=== PATIENT | female | born 2000 | race Hispanic/Latino ===

== ENCOUNTER 2019-01-21 16:07 | Day surgery (SDC) | payer SELFPAY ==
[2019-01-21 16:44] VITALS: TEMP 98.9; BMI 29.3
[2019-01-21 17:18] LABS: Amnisure Test No Membranes Rupture (No Rupture)
[2019-01-21 17:19] LABS: Amnisure Internal Control QC ACCEPTABLE (ACCEPTABLE)
[2019-01-21] MEDS ORDERED: hydrALAZINE 20 MG/ML VIAL SLOW IVP PRN (18:40)
--- NOTE | 2019-01-21 19:41 | PRG ---
DATE OF SERVICE: 01/21/2019 PRIMARY OB: Dr. Michael Martinez. CHIEF COMPLAINT: Nonreassuring BPP and leakage of fluid. HISTORY OF PRESENT ILLNESS: The patient is a 19-year-old G1, P0 female with an intrauterine at 34 weeks and 3 days, being sent from clinic today to Labor and Delivery after having a BPP of 6/8. Dr. Martinez also reported by phone that he had an UZAIR of 6 and that the patient was describing some leaking of fluid and wanted the patient here in Labor and Delivery to be evaluated. Upon arrival, the patient reports that she has had no other complications with this . She does report she has had a day history of a greenish white discharge, this she also describes as being watery. The patient denies any uterine contractions, any recent illness, fever, falls, cough, headache, chest pain, shortness of breath, nausea, vomiting, diarrhea, or constipation. She denies any new rashes, hip problems, knee problems, or muscle weakness. She denies any vaginal bleeding or urinary urgency or frequency. PAST MEDICAL HISTORY: Negative. PAST SURGICAL HISTORY: Negative. ALLERGIES: NO KNOWN DRUG ALLERGIES. MEDICATIONS: vitamins. SOCIAL HISTORY: Denies drug, alcohol, or tobacco use. OB LABS: Blood type O positive. Antibody screen is negative. VDRL is nonreactive in the first trimester. Hepatitis B surface antigen nonreactive in the first trimester. HIV nonreactive in the first trimester. GC and chlamydia were negative. She is rubella immune. One-hour Glucola was 133. REVIEW OF SYSTEMS: Per HPI. PHYSICAL EXAMINATION: VITAL SIGNS: Blood pressure 114/71, heart rate of 93, respiratory rate of 18. GENERAL: She appears to be in no acute distress. She is alert, oriented, cooperative, and pleasant to interact with. HEAD: Normocephalic and atraumatic. LUNGS: Clear to auscultation bilaterally. HEART: Has regular rate and rhythm. ABDOMEN: Nontender and gravid. EXTREMITIES: Nontender, nonedematous. heart tracing shows the fetus with a baseline in the 140s with moderate long-term variability and positive 15 x 15 accelerations. No contractions seen on the monitor. AmniSure test is negative. ASSESSMENT AND PLAN: The patient is a 19-year-old G1, P0 female with an intrauterine at 34 weeks and 3 days, who is presenting from clinic for leakage of fluid and a nonreactive BPP. The patient here has NST that is reactive giving her a total biophysical profile of 8/10. The patient has no evidence of rupture of membranes at this time. She has been given instructions tomorrow to repeat her ultrasound for the repeat biophysical profile that will be done here in the hospital in the outpatient setting. The orders have instructed the harness mender to contact us at [phone] with those results, so further management decisions can be made. If the patient has 8/8 BPP tomorrow, she can follow up with her primary OB as scheduled next week. Job ID: [id number]
--- NOTE | 2019-01-22 13:11 | ULT ---
EXAM: US Biophysical Profile PROVIDED CLINICAL HISTORY: None COMPARISON: None FINDINGS: tone: 2/2 breathin/2 movements: 2/2 Amniotic fluid: 2/2 Total: 12/10 heart rate: 1 53 bpm UZAIR: 6.4 IMPRESSION: Biophysical profile 12/10.
== END 2019-01-21 18:27 | disposition home or self-care (01) ==
LOC: L&D/OP 16:07
PROVIDERS: ATTEND Obstetrics & Gynecology
DX: O99.89 Other specified diseases and conditions complicating pregnancy, childbirth and the puerperium (principal); N89.8 Other specified noninflammatory disorders of vagina; O76 Abnormality in fetal heart rate and rhythm complicating labor and delivery; O36.8130 Decreased fetal movements, third trimester, not applicable or unspecified; Z3A.34 34 weeks gestation of pregnancy
CPT/HCPCS: 76819; 84112

== ENCOUNTER 2019-02-01 10:14 | Inpatient (IN) | payer MEDICAID, SELFPAY ==
[2019-02-01] MEDS ORDERED: Promethazine HCl 25 MG/ML VIAL IM PRN (11:19)
[2019-02-01] MEDS ORDERED: Docusate 100 MG CAP PO PRN (11:19)
[2019-02-01] MEDS ORDERED: Ondansetron PF 4 MG/2 ML Vial IVP PRN (11:19)
[2019-02-01] MEDS ORDERED: hydrALAZINE 20 MG/ML VIAL SLOW IVP PRN (11:19)
[2019-02-01 11:27] VITALS: BMI 31.4
[2019-02-01] MEDS: Betamet Acet/Betamet Na Ph 30 MG/5 ML VIAL IM SCH (12:01)
[2019-02-01] MEDS: Lactated Ringer's 1,000 ML IV SCH (12:03)
[2019-02-01 12:20] LABS: Hemoglobin 12.8 g/dL (12.0-16.0); Mean Corpuscular HGB CONC 35.1 g/dL (32.0-36.0); Mean Corpuscular Hemoglobin 32.6 pg (27.0-31.0); Mean Platelet Volume 7.8 fL (7.4-10.4); Platelet Count 254 thou/uL (130-400); RBC Distribution Width 11.8 % (11.5-14.5); Red Blood Cell (RBC) Count 3.93 mill/uL (4.20-5.40); White Blood Cell (WBC) Count 9.1 thou/uL (4.8-10.8)
[2019-02-01 12:59] LABS: Syphilis Antibody Nonreactive (Nonreactive); Syphilis Antibody Index 0.03 S/CO (<1.00 Non-Reactive)
[2019-02-01 13:01] LABS: HBSAg Index 0.14 S/CO (0-0.99); Hep B Surf Ag Non-Reactive S/CO (NonReactive)
--- NOTE | 2019-02-01 16:08 | ULT ---
EXAM: US Biophysical Profile PROVIDED CLINICAL HISTORY: Oligohydramnios, borderline IUGR, 4 out of 8 biophysical profile score. COMPARISON: 01/22/2019 FINDINGS: Again, there is a single intrauterine gestation in cephalic presentation. Cardiac Doppler demonstrate s heart tones with a heart rate of 140 bpm. Cervical length grossly measures 3.3 cm based on transabdominal imaging. Subjectively, there is a decrease in amniotic fluid. The amniotic fl uid index is also decreased measuring 5 cm. Biophysical profile: tone: 2/2 breathin/2 movement: 2/2 Amniotic fluid volume: 2/2 IMPRESSION: 1. Oligohydramnios with amniotic fluid index measuring 5 cm. The amniotic fluid index on the prior st udy measured 6.4 cm. 2. Total biophysical profile score is 8 out of 8.
--- NOTE | 2019-02-01 18:17 | PDOC.LDHP ---
Labor and Delivery H&P HPI: 19 Y/O at 36 and 0/7 weeks with Oligohydramnios and borderline IUGR presents to L&D for further monitoring and in-patient corticosteroids (BMZ x 2 doses). Bpp in office only 08/10, but patient did not eat breakfast. We will order a repeat BPP for 300pm. Placenta is heavily calcified. Induction od labor planned 36-37 weeks per ACOG. Current gestational age (weeks): 36 Due date: 03/01/19 Grav: 1 Para: 0 Current complications: IUGR, oligohydramnios Abnormal US findings: Yes Current medications: pre-dante vitamins Previous surgical history: none Allergies/Adverse Reactions: Allergies Allergy/AdvReac Type Severity Reaction Status Date / Time No Known Allergies Allergy Unverified 01/21/19 16:39 Social history: none - Physical Exam Vital signs reviewed and normal: yes General: NAD, resting Heart: RRR Lungs: CTAB Abdomen: gravid FHT: category 1 - Vaginal Exam cm dilated: 1 (60-70% EFFACED) Station: -3 - Assessment 1. OLIGOHYDRAMNIOS 2. CALCIFIED,AGED PLACENTA 3. BORDERLINE IUGR (12%) 4. NO SERIAL GROWTH OF FETUS IN 2WEEKS. - Plan Plan: admit to L&D, observation in L&D -: 1. ADMIT TO L&D 2. START STEROID COURSE - BMZ X 2 DOSES 3. REPEAT BPP THIS AFTERNOON 4. CONTINUOUS MONITORING 5. INDUCTION OF LABOR LIKELY FOR TOMORROW EVENING
[2019-02-01] MEDS: Calcium Carbonate 500 MG ChewTAB PO PRN (19:25)
[2019-02-02] MEDS: Lactated Ringer's 1,000 ML IV SCH ×3 (03:48→23:17)
[2019-02-02] MEDS: Famotidine 20 MG TAB PO SCH (09:02)
[2019-02-02] MEDS: Prenatal Vitamin 1 TAB PO SCH (09:02)
[2019-02-02] MEDS: Betamet Acet/Betamet Na Ph 30 MG/5 ML VIAL IM SCH (11:35)
--- NOTE | 2019-02-02 20:34 | PDOC.EVN ---
Event Note - Event Note Event Note: 19 yo at 36 and 1/7 wks today, with Oligohydramnios and borderline IUGR presents for BMZ course and indicated medical induction. Patient has reactive, reassuring NST today. BMZ course now in progress (approx 36 hrs in). REVIEW OF SYSTEMS: Gen: no fever, chills, or sweats Neuro: no numbness/tingling, no weakness, denies headache Eyes: no visual changes ENT: no hearing changes, no sore throat, no runny nose Resp: no cough, no SOB, no wheeze Card: denies chest pain, no palpitations GI: no N/V/D, no abdominal pain : no dysuria, no hematuria MSK: no issues noted Heme: no easy bruising/bleeding Skin: no rash, no erythema PHYSICAL EXAMINATION: General: NAD, alert and oriented x3 HEENT: PERRLA, EOMI, normal sclera, oropharynx without erythema or exudate Neck: Supple. Full ROM. Heart/Cardiovascular System: RRR, Cap refill < 3 seconds, no rub, no murmur Lungs/Respiratory System: clear to auscultation bilaterally. No increased work of breathing. Room air. Abdomen/Gastro-Intestinal System: no abdominal tenderness, normal bowel sounds, Gravid Pelvic Exam: Deferred Extremities: Warm extremities. No cyanosis or edema. Neuro: No gross deficits appreciated. CN 2-12 grossly intact Psychiatry: Awake, Alert and cooperative with exam Skin/ Integumentary: No lesions, rashes, or ulcers Musculoskeletal: Full ROM A/P: Assessment: 1. 19 y/o at 36 and 1/7 wks 2. Oligohydramnios 3. Borderline IUGR with no interval growth of fetus over 2 weeks. 4. BMZ x2 doses now given 4. Vertex on last Ultrasound 5. Desired and Induction Planned, although fetus may not tolerate labor 7. Latest NST was read and is reactive, without notable decelerations,and overall, reassuring for normal acid/base status of the fetus. PLAN: 1. NST twice daily 2. Will attempt to complete BMZ 48 hour window, and proceed with induction of labor using cytotec in hopes of obtaining a 36 week delivery vaginally. Exact timing of induction to be determined.
[2019-02-02] MEDS: Calcium Carbonate 500 MG ChewTAB PO PRN (21:07)
[2019-02-03] MEDS: Lactated Ringer's 1,000 ML IV SCH ×2 (05:58→09:48)
[2019-02-03] MEDS: Prenatal Vitamin 1 TAB PO SCH (08:00)
[2019-02-03] MEDS: Famotidine 20 MG TAB PO SCH (08:00)
[2019-02-03] MEDS ORDERED: FLU VACC QS2019-20(6MOS UP)/PF 60 MCG/0.5 ML SYRINGE IM ONE (09:00)
[2019-02-03] MEDS ORDERED: HYDROcodone/Acetaminophen 5/325 mg Tablet PO PRN ×2 (09:07)
[2019-02-03] MEDS ORDERED: Ibuprofen 800 MG TAB PO PRN (09:07)
[2019-02-03] MEDS ORDERED: Carboprost 250 MCG/ML AMP IM PRN (09:07)
[2019-02-03] MEDS ORDERED: Acetaminophen 500 MG TAB PO PRN (09:07)
[2019-02-03] MEDS ORDERED: Zolpidem Tartrate 5 MG TAB PO PRN (09:07)
[2019-02-03] MEDS ORDERED: Diphenoxylate HCl/Atropine Tablet PO PRN ×2 (09:07)
[2019-02-03] MEDS ORDERED: Promethazine HCl 25 MG/ML VIAL IM PRN (09:07)
[2019-02-03] MEDS ORDERED: Misoprostol 200 MCG TAB PR PRN (09:07)
[2019-02-03] MEDS ORDERED: Lidocaine 1% (PF) 30 ML VIAL SC PRN (09:07)
[2019-02-03] MEDS ORDERED: Methylergonovine 0.2 MG/ML VIAL IM PRN (09:07)
[2019-02-03] MEDS ORDERED: hydrALAZINE 20 MG/ML VIAL SLOW IVP PRN (09:07)
[2019-02-03] MEDS ORDERED: Butorphanol Tartrate 1 MG/ML VIAL SLOW IVP PRN (09:07)
[2019-02-03] MEDS ORDERED: NS / Oxytocin 40 units/1000ml 1,000 ML IV PRN (09:07)
[2019-02-03 09:53] LABS: Hemoglobin 12.4 g/dL (12.0-16.0); Mean Corpuscular HGB CONC 34.4 g/dL (32.0-36.0); Mean Corpuscular Hemoglobin 32.3 pg (27.0-31.0); Mean Corpuscular Volume 93.8 fL (78.0-98.0); Mean Platelet Volume 7.7 fL (7.4-10.4); Platelet Count 244 thou/uL (130-400); RBC Distribution Width 11.8 % (11.5-14.5); Red Blood Cell (RBC) Count 3.85 mill/uL (4.20-5.40); White Blood Cell (WBC) Count 10.9 thou/uL (4.8-10.8)
[2019-02-03 10:49] LABS: HBSAg Index 0.16 S/CO (0-0.99); Hep B Surf Ag Non-Reactive S/CO (NonReactive); Syphilis Antibody Nonreactive (Nonreactive); Syphilis Antibody Index 0.03 S/CO (<1.00 Non-Reactive)
[2019-02-03] MEDS: Misoprostol 100 MCG TAB VAG SCH ×4 (11:28→21:01)
[2019-02-04] MEDS: Lactated Ringer's 1,000 ML IV SCH ×4 (00:53→17:06)
[2019-02-04] MEDS: NS w/ Oxytocin 10 units 500 ML IV SCH ×2 (04:24→17:06)
[2019-02-04] MEDS: Ondansetron PF 4 MG/2 ML Vial IVP PRN (05:41)
[2019-02-04] MEDS: Misoprostol 100 MCG TAB VAG SCH ×4 (09:04→18:40)
[2019-02-04] MEDS: Famotidine 20 MG TAB PO SCH (09:05)
--- NOTE | 2019-02-05 01:02 | PDOC.EVN ---
Event Note - Event Note Event Note: 19 yo at 36 and 2/7 wks today, with Oligohydramnios and borderline IUGR who presented for BMZ course and indicated medical induction. Patient has reactive, reassuring NST today. REVIEW OF SYSTEMS: Gen: no fever, chills, or sweats Neuro: no numbness/tingling, no weakness, denies headache Eyes: no visual changes ENT: no hearing changes, no sore throat, no runny nose Resp: no cough, no SOB, no wheeze Card: denies chest pain, no palpitations GI: no N/V/D, no abdominal pain : no dysuria, no hematuria MSK: no issues noted Heme: no easy bruising/bleeding Skin: no rash, no erythema PHYSICAL EXAMINATION: General: NAD, alert and oriented x3 HEENT: PERRLA, EOMI, normal sclera, oropharynx without erythema or exudate Neck: Supple. Full ROM. Heart/Cardiovascular System: RRR, Cap refill < 3 seconds, no rub, no murmur Lungs/Respiratory System: clear to auscultation bilaterally. No increased work of breathing. Room air. Abdomen/Gastro-Intestinal System: no abdominal tenderness, normal bowel sounds, Gravid Pelvic Exam: Deferred Extremities: Warm extremities. No cyanosis or edema. Neuro: No gross deficits appreciated. CN 2-12 grossly intact Psychiatry: Awake, Alert and cooperative with exam Skin/ Integumentary: No lesions, rashes, or ulcers Musculoskeletal: Full ROM A/P: Assessment: 1. 19 y/o at 36 and 2/7 wks 2. Oligohydramnios 3. Borderline IUGR with no interval growth of fetus over 2 weeks. 4. BMZ x2 course completed 4. Vertex presentation 5. Desired PLAN: 1. We have now begun medical induction of labor using cytotec in hopes of obtaining a 36 week delivery vaginally. Will use Cytotec to start induction.
--- NOTE | 2019-02-05 01:05 | PDOC.EVN ---
Event Note - Event Note Event Note: 19 yo at 36 and 3/7 wks today, with Oligohydramnios and borderline IUGR who presented for BMZ course and indicated medical induction. REVIEW OF SYSTEMS: Gen: no fever, chills, or sweats Neuro: no numbness/tingling, no weakness, denies headache Eyes: no visual changes ENT: no hearing changes, no sore throat, no runny nose Resp: no cough, no SOB, no wheeze Card: denies chest pain, no palpitations GI: no N/V/D, no abdominal pain : no dysuria, no hematuria MSK: no issues noted Heme: no easy bruising/bleeding Skin: no rash, no erythema PHYSICAL EXAMINATION: General: NAD, alert and oriented x3 HEENT: PERRLA, EOMI, normal sclera, oropharynx without erythema or exudate Neck: Supple. Full ROM. Heart/Cardiovascular System: RRR, Cap refill < 3 seconds, no rub, no murmur Lungs/Respiratory System: clear to auscultation bilaterally. No increased work of breathing. Room air. Abdomen/Gastro-Intestinal System: no abdominal tenderness, normal bowel sounds, Gravid Pelvic Exam: Deferred Extremities: Warm extremities. No cyanosis or edema. Neuro: No gross deficits appreciated. CN 2-12 grossly intact Psychiatry: Awake, Alert and cooperative with exam Skin/ Integumentary: No lesions, rashes, or ulcers Musculoskeletal: Full ROM A/P: Assessment: 1. 19 y/o at 36 and 3/7 wks 2. Oligohydramnios 3. Borderline IUGR with no interval growth of fetus over 2 weeks. 4. BMZ x2 course completed 4. Medically indicated late medical Induction of labor underway for the above indications. Membranes intact, and patient now on Pitocin. PLAN: 1. Continue induction of labor 2. AROM when indicated and possible 3. Epidural anesthesia options discussed in detail. 4. Anticipate .
--- NOTE | 2019-02-05 01:07 | PDOC.EVN ---
Event Note - Event Note Event Note: 19 yo at 36 and 4/7 wks today, with Oligohydramnios and borderline IUGR who presented for BMZ course and followed by indicated medical induction. REVIEW OF SYSTEMS: Gen: no fever, chills, or sweats Neuro: no numbness/tingling, no weakness, denies headache Eyes: no visual changes ENT: no hearing changes, no sore throat, no runny nose Resp: no cough, no SOB, no wheeze Card: denies chest pain, no palpitations GI: no N/V/D, no abdominal pain : no dysuria, no hematuria MSK: no issues noted Heme: no easy bruising/bleeding Skin: no rash, no erythema PHYSICAL EXAMINATION: General: NAD, alert and oriented x3 HEENT: PERRLA, EOMI, normal sclera, oropharynx without erythema or exudate Neck: Supple. Full ROM. Heart/Cardiovascular System: RRR, Cap refill < 3 seconds, no rub, no murmur Lungs/Respiratory System: clear to auscultation bilaterally. No increased work of breathing. Room air. Abdomen/Gastro-Intestinal System: no abdominal tenderness, normal bowel sounds, Gravid Pelvic Exam: Deferred Extremities: Warm extremities. No cyanosis or edema. Neuro: No gross deficits appreciated. CN 2-12 grossly intact Psychiatry: Awake, Alert and cooperative with exam Skin/ Integumentary: No lesions, rashes, or ulcers Musculoskeletal: Full ROM A/P: Assessment: 1. 19 y/o at 36 and 4/7 wks 2. Oligohydramnios 3. Borderline IUGR with no interval growth of fetus over 2 weeks. 4. BMZ x2 course completed 4. Vertex presentation 5. Desired 6. AROM just completed with small amount of clear fluid. IUPC placed. PLAN: 1. Continue titrating pitocin based on MVUs 2. Epidural currently declined. 3. Pt. requesting Stadol.
--- NOTE | 2019-02-05 01:09 | PDOC.LDPN ---
Labor & Delivery Progress Note - Subjective Subjective: comfortable - Objective Vital signs reviewed and normal: yes General: NAD, resting Uterine fundus: non tender (Ancef 2g given for temperature elevation of 100 degrees F.) Dilation: 9 Effacement: 100% Station: 1+ FHT: category 1 AROM: clear fluid Plan: continue plan of care, pitocin for augmentation
[2019-02-05] MEDS ORDERED: Fentanyl 4 mcg/Bup 0.1% Cadd 100 ML ONE ×2 (01:28→08:49)
[2019-02-05] MEDS ORDERED: Acetaminophen 325 MG TAB PO PRN (02:12)
[2019-02-05] MEDS ORDERED: ePHEDrine/0.9% NaCl/PF SYRINGE 50 mg/10 ml SLOW IVP PRN (02:12)
[2019-02-05] MEDS ORDERED: Ondansetron PF 4 MG/2 ML Vial IVP PRN ×2 (02:12→13:12)
[2019-02-05] MEDS ORDERED: diphenhydrAMINE 50 MG/ML VIAL IVP PRN (02:12)
[2019-02-05] MEDS ORDERED: Lactated Ringer's 500 ML IV PRN (02:12)
[2019-02-05] MEDS ORDERED: Promethazine HCl 25 MG/ML VIAL IM PRN ×2 (02:12→13:12)
[2019-02-05] MEDS ORDERED: Naloxone HCl 0.4 mg/ml Vial IVP PRN ×2 (02:12)
[2019-02-05] MEDS ORDERED: Communication Order-Pharmacy FS SCH (02:15)
[2019-02-05] MEDS ORDERED: Fentanyl 4 mcg/Bupivacaine 0.1% Cassette 100 ML EPIDURAL SCH (02:15)
[2019-02-05] MEDS: Misoprostol 100 MCG TAB VAG SCH ×4 (04:25→13:51)
[2019-02-05] MEDS: NS w/ Oxytocin 10 units 500 ML IV SCH ×3 (05:13→13:52)
[2019-02-05] MEDS: Ondansetron PF 4 MG/2 ML Vial IVP PRN (05:52)
[2019-02-05] MEDS ORDERED: Misoprostol 200 MCG TAB ONE (10:56)
[2019-02-05] MEDS ORDERED: Bupivacaine/Epinephrine 0.25% 30 ML VIAL ONE (11:11)
[2019-02-05] MEDS ORDERED: hydrALAZINE 20 MG/ML VIAL SLOW IVP PRN (13:12)
[2019-02-05] MEDS ORDERED: HYDROcodone/Acetaminophen 5/325 mg Tablet PO PRN ×2 (13:12)
[2019-02-05] MEDS ORDERED: Milk Of Magnesia 30 ML UDCUP PO PRN (13:12)
[2019-02-05] MEDS ORDERED: Adacel (T-DAP) 0.5 ML SYRINGE IM ONE (13:12)
[2019-02-05] MEDS ORDERED: Measles/Mumps/Rubella 10 MCG/0.5 ML VIAL SC ONE (13:12)
[2019-02-05] MEDS ORDERED: Lanolin Ointment 7 GM TUBE TOP PRN (13:12)
[2019-02-05] MEDS ORDERED: Misoprostol 200 MCG TAB VAG PRN (13:12)
[2019-02-05] MEDS ORDERED: Zolpidem Tartrate 5 MG TAB PO PRN (13:12)
[2019-02-05] MEDS ORDERED: NS / Oxytocin 40 units/1000ml 1,000 ML IV SCH (13:12)
[2019-02-05] MEDS ORDERED: Bisacodyl 10 MG SUPP PR PRN (13:12)
[2019-02-05] MEDS ORDERED: diphenhydrAMINE 25 MG CAP PO PRN (13:12)
[2019-02-05] MEDS ORDERED: Varicella virus, LIVE 0.5 ML VIAL SC ONE (13:12)
[2019-02-05] MEDS ORDERED: Preparation H Ointment 28 GM TUBE PR PRN (13:12)
[2019-02-05] MEDS ORDERED: Methylergonovine 0.2 MG/ML VIAL IM PRN (13:12)
[2019-02-05] MEDS: Ferrous Sulfate 325 MG TAB PO SCH ×2 (13:48→15:52)
[2019-02-05] MEDS: Docusate Calcium (SURFAK) 240 MG CAP PO SCH ×2 (13:48→21:48)
[2019-02-05] MEDS: Ibuprofen 800 MG TAB PO SCH ×3 (13:49→21:48)
[2019-02-05] MEDS: Famotidine 20 MG TAB PO SCH (13:50)
[2019-02-05] MEDS: Lactated Ringer's 1,000 ML IV SCH (13:50)
[2019-02-06] MEDS: Ibuprofen 800 MG TAB PO SCH ×3 (05:57→21:29)
[2019-02-06 06:19] LABS: Hemoglobin 11.7 g/dL (12.0-16.0); Mean Corpuscular HGB CONC 34.3 g/dL (32.0-36.0); Mean Corpuscular Hemoglobin 33.1 pg (27.0-31.0); Mean Corpuscular Volume 96.5 fL (78.0-98.0); Mean Platelet Volume 7.7 fL (7.4-10.4); Platelet Count 226 thou/uL (130-400); Red Blood Cell (RBC) Count 3.54 mill/uL (4.20-5.40); White Blood Cell (WBC) Count 14.9 thou/uL (4.8-10.8)
[2019-02-06] MEDS: Ferrous Sulfate 325 MG TAB PO SCH ×2 (09:44→18:02)
[2019-02-06] MEDS: Docusate Calcium (SURFAK) 240 MG CAP PO SCH ×2 (09:44→21:29)
--- NOTE | 2019-02-06 11:56 | PDOC.PP ---
Post Progress Note Post Day #: 1 PO intake tolerated: yes Flatus: yes Ambulation: yes Vital Signs (12 hours) Temp Pulse Resp BP Pulse Ox 02/06/19 08:00 98.1 F 73 16 110/70 96 02/06/19 04:18 98.1 F 73 16 121/70 02/06/19 00:00 98.2 F 78 16 118/69 Weight Weight 183 lb - Physical Examination Cardiovascular: no m/r/g, RRR Respiratory: clear to auscultation bilaterally, non-labored breathing Abdominal: + bowel sounds, lochia, no distention Extremities: negative homans (B) Neurological: no gross focal deficits Psychiatric: A&Ox3, normal affect Result Diagrams: 02/06/19 06:03 Additional Labs: Post Labs Blood Type O POSITIVE 02/01/19 12:31 Hep Bs Antigen Non-Reactive S/CO (NonReactive) 02/03/19 09:39 - Assessment/Plan DC Home planned for tomorrow
--- NOTE | 2019-02-06 13:04 | DN ---
DATE OF PROCEDURE: 02/05/2019 TIME: 11:08 [employer] Day[employer] Savings Time. PREOPERATIVE DIAGNOSIS: Intrauterine at 36 weeks and 4 days with a diagnosis of oligohydramnios and borderline intrauterine growth restriction with no serial growth over 2 weeks and heavily calcified placenta. POSTOPERATIVE DIAGNOSIS: Intrauterine at 36 weeks and 4 days with a diagnosis of oligohydramnios and borderline intrauterine growth restriction with no serial growth over 2 weeks and heavily calcified placenta. PROCEDURE PERFORMED: Spontaneous vaginal delivery over a small laceration of the hymenal ring. FINDINGS: Viable female weighing 2418 g or 5 pounds 5 ounces, Apgars 8 and 9. QUANTITATIVE BLOOD LOSS: 27. COMPLICATIONS: None. PROCEDURE IN DETAIL: The patient presented to [facility] where she was admitted to the labor and delivery service. The patient underwent a normal and uneventful labor with normal cervical dilatation until she was found to be completely dilated. She was then allowed to push and was able to bring the baby down and delivered the baby in a vertex presentation without difficulties. Once the head delivered in occiput anterior position, the shoulders followed spontaneously along with the rest of the baby's body. Once out the baby's mouth and nose were bulb suctioned. The cord was clamped and cut and baby was handed to waiting attendants. Cord blood was collected. Gentle fundal massage was performed and the placenta delivered intact without problems. Hemostasis was assured. Quantitative blood loss was calculated. Inspection of the cervix, vaginal vault, and perineum did not reveal any lacerations needing suturing. Once again, hemostasis was within normal limits and the patient was allowed to recover in the labor and delivery room. Baby went to nursery. Job ID: [id number]
--- NOTE | 2019-02-07 03:14 | PDOC.PP ---
Post Progress Note Post Day #: 2 PO intake tolerated: yes Flatus: yes Ambulation: yes Vital Signs (12 hours) Temp Pulse Resp BP Pulse Ox 02/06/19 19:56 97.8 F 92 16 116/55 L 98 02/06/19 16:35 98.8 F 80 18 115/64 Weight Weight 183 lb - Physical Examination General: NAD Cardiovascular: no m/r/g, RRR Respiratory: clear to auscultation bilaterally, non-labored breathing Abdominal: + bowel sounds, lochia, no distention Extremities: negative homans (B) Neurological: no gross focal deficits Psychiatric: A&Ox3, normal affect Result Diagrams: 02/06/19 06:03 Additional Labs: Post Labs Blood Type O POSITIVE 02/01/19 12:31 Hep Bs Antigen Non-Reactive S/CO (NonReactive) 02/03/19 09:39
[2019-02-07] MEDS: Ibuprofen 800 MG TAB PO SCH ×2 (05:07→14:49)
[2019-02-07 08:53] VITALS: BP 115/58; TEMP 98.3
[2019-02-07] MEDS: Ferrous Sulfate 325 MG TAB PO SCH (14:47)
[2019-02-07] MEDS: Docusate Calcium (SURFAK) 240 MG CAP PO SCH (14:48)
[2019-02-07] MEDS ORDERED: FLU VACC QS2019-20(6MOS UP)/PF 60 MCG/0.5 ML SYRINGE IM ONE (18:00)
== END 2019-02-07 16:54 | disposition home or self-care (01) | DRG 806 ==
LOC: L&D 10:14 → 3SW 23:40 → L&D 02-03 10:23 → 3SW 02-05 13:27
PROVIDERS: ADMIT Obstetrics & Gynecology; ATTEND Obstetrics & Gynecology
PROC: 10907ZC Drainage of Amniotic Fluid, Therapeutic from Products of Conception, Via Natural or Artificial Opening (ICD-10-PCS; principal; 2019-02-05)
PROC: 10E0XZZ Delivery of Products of Conception, External Approach (ICD-10-PCS; 2019-02-05)
PROC: 3E033VJ Introduction of Other Hormone into Peripheral Vein, Percutaneous Approach (ICD-10-PCS; 2019-02-05)
PROC: 3E0P7VZ Introduction of Hormone into Female Reproductive, Via Natural or Artificial Opening (ICD-10-PCS; 2019-02-05)
PROC: 3E02340 Introduction of Influenza Vaccine into Muscle, Percutaneous Approach (ICD-10-PCS; 2019-02-05)
DX: O36.5930 Maternal care for other known or suspected poor fetal growth, third trimester, not applicable or unspecified (principal); O41.03X0 Oligohydramnios, third trimester, not applicable or unspecified; Z37.0 Single live birth; O43.893 Other placental disorders, third trimester; O70.0 First degree perineal laceration during delivery; Z3A.36 36 weeks gestation of pregnancy; Z23 Encounter for immunization
CPT/HCPCS: 36415; 59025; 76819; 85027; 86780; 86850; 86900; 86901; 87340; 88307; 90471; 90685; 90686; 99285; G0008; J0595; J0702; J2405; J2590

== ENCOUNTER 2020-12-15 16:05 | Emergency (ER) | payer SELFPAY | END 2020-12-15 18:58 | disposition home or self-care (01) | LOC: ERS 16:05 | DX: O03.4 Incomplete spontaneous abortion without complication (principal) | CPT/HCPCS: 36415; 84702; 99284 ==

== ENCOUNTER 2025-02-14 11:34 | Observation (INO) | payer SELFPAY ==
[2025-02-14 12:23] LABS: #Basophils Less than 0.03 10x3/uL (0.0-0.2); #Eosinophils 0.05 10x3/uL (0.0-0.7); #Monocytes 0.46 10x3/uL (0.11-0.59); #Neutrophils 3.82 10x3/uL (1.40-6.50); %Basophils 0.2 % (0.0-1.0); %Eosinophils 0.8 % (0.0-10.0); %Lymphocytes 33.5 % (21.0-51.0); %Monocytes 7.0 % (0.0-10.0); %Neutrophils 58.3 % (42.0-75.0); Hematocrit 38.9 % (36.0-47.0); Hemoglobin 13.2 g/dL (12.0-16.0); Mean Corpuscular Hemoglobin 32.0 pg (27.0-31.0); Mean Corpuscular Volume 94.2 fL (78.0-98.0); Platelet Count 229 10x3/uL (130-400); Red Blood Cell (RBC) Count 4.13 mill/uL (4.20-5.40); White Blood Cell (WBC) Count 6.54 10x3/uL (4.8-10.8)
[2025-02-14 12:52] LABS: ALT (SGPT) 13 U/L (Less than 34); AST (SGOT) 31 U/L (11-34); Albumin 4.0 g/dL (3.1-4.5); Alkaline Phosphatase 90 U/L (40-110); Anion Gap 10 mmol/L (10-20); BUN (Urea Nitrogen) 7 mg/dL (7.0-18.7); Bilirubin, Total 0.6 mg/dL (0.3-1.2); Calc. Creatinine Clearance 0 mL/min (70-130); Calcium 9.0 mg/dL (7.8-10.44); Carbon Dioxide 25 mmol/L (22-29); Chloride 108 mmol/L (98-107); Globulin 2.6 g/dL (2.4-3.5); Glucose 99 mg/dL (70-105); Potassium 3.8 mmol/L (3.5-5.1); Sodium 139 mmol/L (136-145)
[2025-02-14] MEDS ORDERED: Dextrose 50% Abboject 50 ML SYRINGE SLOW IVP PRN (13:30)
[2025-02-14] MEDS ORDERED: Glucagon 1 MG/ML KIT IM PRN (13:30)
[2025-02-14] MEDS ORDERED: Ondansetron PF 4 MG/2 ML Vial IVP PRN (13:30)
[2025-02-14] MEDS ORDERED: Methocarbamol 500 MG TAB PO PRN (13:30)
[2025-02-14 15:37] LABS: BHCG - Serum Negative (NEGATIVE); Pregs Control Background? CLEAR/WHITE (CLR/WHITE); Pregs Control Bar Appear? YES (CONTROL BAR)
[2025-02-14] MEDS ORDERED: Lidocaine 1% PF 5 ML VIAL ONE (16:32)
[2025-02-14] MEDS ORDERED: Rocuronium Bromide 10 MG/ML (10ML VIAL) ONE (16:32)
[2025-02-14] MEDS ORDERED: fentaNYL PF 100 MCG/2 ML SYRINGE ONE (16:32)
[2025-02-14] MEDS ORDERED: PROPOFOL 20 ML ONE (16:32)
[2025-02-14] MEDS ORDERED: Ondansetron PF 4 MG/2 ML Vial ONE (17:27)
[2025-02-14] MEDS ORDERED: Ketorolac Tromethamine 30 MG (1 mL) VIAL ONE (17:27)
[2025-02-14] MEDS ORDERED: SUGAMMADEX SODIUM 200 MG/2 ML VIAL ONE (18:01)
[2025-02-14] MEDS ORDERED: Bupivacaine 0.25% HCL 30 ML VIAL ONE (18:23)
[2025-02-14] MEDS ORDERED: HYDROmorphone 2 MG/ML VIAL ONE (18:32)
[2025-02-14 21:29] VITALS: BMI 33.3
[2025-02-14] MEDS: Senokot S 8.6-50 MG TAB PO SCH (21:38)
[2025-02-15] MEDS: Acetaminophen 325 MG TAB PO PRN (05:44)
[2025-02-15 05:45] LABS: #Basophils Less than 0.03 10x3/uL (0.0-0.2); #Eosinophils Less than 0.03 10x3/uL (0.0-0.7); #Monocytes 0.29 10x3/uL (0.11-0.59); #Neutrophils 5.95 10x3/uL (1.40-6.50); %Basophils 0.0 % (0.0-1.0); %Eosinophils 0.0 % (0.0-10.0); %Lymphocytes 9.7 % (21.0-51.0); %Monocytes 4.2 % (0.0-10.0); %Neutrophils 85.7 % (42.0-75.0); Hematocrit 38.5 % (36.0-47.0); Hemoglobin 12.9 g/dL (12.0-16.0); Mean Corpuscular Hemoglobin 31.8 pg (27.0-31.0); Mean Corpuscular Volume 94.8 fL (78.0-98.0); Platelet Count 235 10x3/uL (130-400); Red Blood Cell (RBC) Count 4.06 mill/uL (4.20-5.40); White Blood Cell (WBC) Count 6.94 10x3/uL (4.8-10.8)
[2025-02-15 05:49] LABS: ALT (SGPT) 34 U/L (Less than 34); AST (SGOT) 32 U/L (11-34); Albumin 3.8 g/dL (3.1-4.5); Alkaline Phosphatase 84 U/L (40-110); Anion Gap 10 mmol/L (10-20); BUN (Urea Nitrogen) 4 mg/dL (7.0-18.7); Bilirubin, Total 0.6 mg/dL (0.3-1.2); Calc. Creatinine Clearance 206 mL/min (70-130); Calcium 8.9 mg/dL (7.8-10.44); Carbon Dioxide 24 mmol/L (22-29); Chloride 107 mmol/L (98-107); Globulin 2.7 g/dL (2.4-3.5); Glucose 133 mg/dL (70-105); Potassium 4.1 mmol/L (3.5-5.1); Sodium 137 mmol/L (136-145)
[2025-02-15] MEDS: FLU (Fluarix Triv) 25-26 (6MOS UP)/PF 45 MCG/0.5 ML Syringe IM ONE (10:24)
[2025-02-15 10:33] VITALS: BP 108/72; TEMP 98.2
== END 2025-02-15 11:24 | disposition home or self-care (01) ==
LOC: ERS 11:34 → ERHOLD 13:37 → T4-B 20:46
PROVIDERS: ADMIT Surgery; ATTEND Surgery
PROC: 0FT44ZZ Resection of Gallbladder, Percutaneous Endoscopic Approach (ICD-10-PCS; principal; 2025-02-14)
DX: K80.12 Calculus of gallbladder with acute and chronic cholecystitis without obstruction (principal)
CPT/HCPCS: 36415; 76705; 80053; 83036; 84703; 85025; 88304; 90656; 96374; 96375; C1713; C1894; G0378; J0169; J0665; J1100; J1171; J1885; J2270; J2543; J2704; J3010; J7120; S2900